=== PATIENT | female | born 1995 | race Caucasian/White ===

== ENCOUNTER 2016-12-17 19:28 | Emergency (ER) ==
[2016-12-17 19:33] VITALS: BP 88/52; TEMP 98.7; BMI 30.2
--- NOTE | 2016-12-17 19:41 | ED.PDOC ---
General ED Provider: Dr. CARL CLOUD-ER Chief Complaint: Sore Throat Stated Complaint: my throat is sore and swollen--this happens a lot Time Seen by Physician: 19:39 Mode of Arrival: Walk-In Information Source: Patient Exam Limitations: No limitations Nursing and Triage Documentation Reviewed and Agree: Yes EENT Complaint Exam - Throat Complaint/Exam Onset/Duration: 2 days Symptoms Are: Still present Timimg: Constant Initial Severity: Mild Current Severity: Moderate Aggravating: Reports: Eating Alleviating: Reports: Antipyretics Associated Signs and Symptoms: Reports: Fever, Nasal congestion. Denies: Dysphagia, Drooling, Foreign body sensation, Chills, Cough, Wheezing, Hoarseness , Sinus discomfort, Difficulty breathing, Lethargy, Irritability, Decreased activity, Vomiting, Diarrhea, Decreased hearing, Ear drainage Related History: Reports: Similar Episode Uvula Midline: Yes Marta-tonsillar Fluctuence: No Scarlatinaform Rash Present: No Exanthem: Present: Pharynx Stridor Present: No Sinus Tenderness Present: No Tonsillar Hypertrophy Present: Yes Tonsillar Exudate Present: No Marta-tonsillar Swelling Present: No Adenopathy Present: Yes Splenomegaly Present: No Differential Diagnoses: Tonsillitis Review of Systems - Review Of Systems Constitutional: Reports: Fever Eyes: Reports: No symptoms Ears, Nose, Mouth, Throat: Reports: Throat pain, Throat swelling Respiratory: Reports: No symptoms Cardiac: Reports: No symptoms GI: Reports: No symptoms : Reports: No symptoms Musculoskeletal: Reports: No symptoms Skin: Reports: No symptoms Neurological: Reports: No symptoms Endocrine: Reports: No symptoms Hematologic/Lymphatic: Reports: No symptoms All Other Systems: Reviewed and Negative Past Medical History - Past Medical History Previously Healthy: Yes Endocrine: Reports: None Cardiovascular: Reports: None Respiratory: Reports: None Hematological: Reports: None Gastrointestinal: Reports: None Genitourinary: Reports: None Neuro/Psych: Reports: None Musculoskeletal: Reports: None Cancer: Reports: None Last Menstrual Period: 4-5 DAYS AGO - Surgical History General Surgical History: Reports: Unknown - Family History Family History: Reports: Unknown - Social History Smoking Status: Former smoker Hx Substance Use: No Alcohol Screening: Occasionally Lives: With family - Immunizations Tetanus Shot up to Date: Yes Physical Exam - Physical Exam Appearance: Well-appearing, No pain distress, Well-nourished Pain Distress: Mild Eyes: DM, EOMI, Conjunctiva clear ENT: Ears normal, Nose normal, Erythema Neck: Supple Respiratory: Airway patent, Breath sounds clear, Breath sounds equal, Respirations nonlabored Cardiovascular: RRR, Pulses normal, No rub, No murmur GI/: Soft Musculoskeletal: Normal strength, ROM intact, No edema, No calf tenderness Skin: Warm, Dry, Normal color Neurological: Sensation intact Psychiatric: Affect appropriate, Mood appropriate Critical Care Note - Critical Care Note Total Time (mins): 0 Course - Course Orders, Labs, Meds: Orders Category Date Time Status RAPID FLU A/B Stat LAB 12/17/16 19:30 Received STREP SCREEN Stat LAB 12/17/16 19:30 Received Vital Signs: Temp Pulse Resp BP Pulse Ox 12/17/16 19:29 98.7 F 103 H 20 88/52 L 98 Departure - Departure Time of Disposition: 19:41 Disposition: HOME SELF-CARE Discharge Problem: Tonsillitis Instructions: Tonsillitis (ED) Condition: Good Pt referred to PMD for follow-up: Yes Additional Instructions: augmentin 875mg bid x 10 days--medrol dose pack--see dr tejada as outpatient Allergies/Adverse Reactions: Allergies latex Adverse Reaction (Verified 12/17/16 19:32) Home Medications: Ambulatory Orders 1 [No Reported Medications] 05/15/14 Disposition Discussed With: Patient, Family
[2016-12-17 19:52] LABS: FLU INTERNAL QC INTERNAL QC VALID; RAPID FLU A NEGATIVE (NEGATIVE); RAPID FLU B NEGATIVE (NEGATIVE)
== END 2016-12-17 20:00 | disposition home or self-care (01) ==
LOC: ED 19:28
DX: J03.90 Acute tonsillitis, unspecified (principal)
CPT/HCPCS: 87804; 87880; 99283

== ENCOUNTER 2017-04-06 16:27 | Outpatient (CLI) ==
[2017-04-06 17:24] LABS: BASOPHILS # (AUTO) 0.1 K/uL (0-0.2); BASOPHILS % (AUTO) 0.5 % (0.0-3.0); EOSINOPHILS # (AUTO) 0.3 K/ul (0.0-0.7); EOSINOPHILS % (AUTO) 2.9 % (0.0-7.0); HEMATOCRIT 39.6 % (37.0-47.0); IMMATURE GRANULOCYTE % (AUTO) 0.5 % (0.0-5.0); LYMPHOCYTES # (AUTO) 2.8 K/uL (0.60-3.4); LYMPHOCYTES % (AUTO) 25.3 (10.0-50.0); MEAN CORPUSCULAR HEMOGLOBIN 30.6 pg (27.0-31.0); MEAN CORPUSCULAR HGB CONC 35.4 (31.8-35.4); MEAN CORPUSCULAR VOLUME 86.5 fl (81.0-99.0); MONOCYTES # (AUTO) 0.9 K/uL (0.4-2.0); MONOCYTES % (AUTO) 8.6 (0-10); NEUTROPHILS # (AUTO) 6.8 K/ul (2.0-6.9); NEUTROPHILS % (AUTO) 62.2; PLATELET COUNT 222 10^3/uL (140-440); RED BLOOD COUNT 4.58 10^6/ul (4.20-5.40); WHITE BLOOD COUNT 10.98 K/ul (4.6-10.2)
[2017-04-06 17:27] LABS: BILIRUBIN,URINE Negative (NEGATIVE); KETONES,URINE Negative (NEGATIVE); LEUKOCYTE ESTERASE ,URINE Negative (NEGATIVE); NITRITE,URINE Negative (NEGATIVE); PH,URINE 5.5 (5-9); PROTEIN,URINE Negative (NEGATIVE); URINE, BLOOD 2+ (NEGATIVE)
[2017-04-06 17:30] LABS: ADD URINE MICROSCOPIC YES
[2017-04-06 17:32] LABS: BACTERIA,URINE TRACE (NOT PRESENT)
[2017-04-06 18:06] LABS: ALBUMIN 3.9 g/dL (3.4-5.0); ALBUMIN/GLOBULIN RATIO 1.26; ANION GAP 11.7; BILIRUBIN,TOTAL 0.32 mg/dL (0.00-1.20); BUN/CREATININE RATIO 17.94; CALCIUM 9.2 mg/dL (8.2-10.2); CREATININE 0.78 mg/dL (0.60-1.30); POTASSIUM 3.7 mmol/L (3.5-5.10)
== END 2017-04-06 16:28 | disposition home or self-care (01) ==
LOC: LAB 16:27
PROVIDERS: ATTEND Nurse Practitioner Family
DX: H53.8 Other visual disturbances (principal); G44.89 Other headache syndrome; E66.9 Obesity, unspecified
CPT/HCPCS: 36415; 80053; 81001; 83036; 84439; 84443; 85025

== ENCOUNTER 2018-01-21 15:52 | Emergency (ER) | payer OTHER ==
[2018-01-21 16:01] VITALS: BP 123/73; TEMP 98.5; BMI 37.8
--- NOTE | 2018-01-21 16:05 | ED.PDOC ---
General ED Provider: Dr. CARL CLOUD-ER Chief Complaint: Sore Throat Stated Complaint: my tonsils are swollen--joseph had this two other times Time Seen by Physician: 16:04 Mode of Arrival: Walk-In Information Source: Patient Nursing and Triage Documentation Reviewed and Agree: Yes Reviewed sepsis parameters & appropriate labs ordered?: Yes System Inflammatory Response Syndrome: Not Applicable Sepsis Protocol: For patient's 13 years and over: Temp is 96.8 and below OR 101 and greater Pulse >90 BPM Resp >20/minute Acutely Altered Mental Status Are patient's symptoms suggestive of a new infection, such as: -Pneumonia -Skin, Soft Tissue -Endocarditis -UTI -Bone, Joint Infection -Implantable Device -Acute Abdominal Infection -Wound Infection -Meningitis -Blood Stream Catheter Infection -Unknown EENT Complaint Exam - Throat Complaint/Exam Onset/Duration: 2 days Symptoms Are: Still present Timimg: Constant Initial Severity: Mild Current Severity: Mild Alleviating: Reports: None Associated Signs and Symptoms: Reports: Fever, Nasal congestion. Denies: Dysphagia, Drooling, Foreign body sensation, Chills, Cough, Wheezing, Hoarseness , Sinus discomfort Related History: Reports: Similar Episode Uvula Midline: Yes Marta-tonsillar Fluctuence: No Scarlatinaform Rash Present: No Vesicles: Present: Pharynx Stridor Present: No Sinus Tenderness Present: No Tonsillar Hypertrophy Present: Yes Tonsillar Exudate Present: Yes Marta-tonsillar Swelling Present: No Adenopathy Present: No Splenomegaly Present: No Differential Diagnoses: Tonsillitis Review of Systems - Review Of Systems Constitutional: Reports: No symptoms Eyes: Reports: No symptoms Ears, Nose, Mouth, Throat: Reports: Throat pain, Throat swelling Respiratory: Reports: No symptoms Cardiac: Reports: No symptoms GI: Reports: No symptoms : Reports: No symptoms Musculoskeletal: Reports: No symptoms Skin: Reports: No symptoms Neurological: Reports: No symptoms Endocrine: Reports: No symptoms Hematologic/Lymphatic: Reports: No symptoms All Other Systems: Reviewed and Negative Past Medical History - Past Medical History Previously Healthy: Yes Endocrine: Reports: None Cardiovascular: Reports: None Respiratory: Reports: None Hematological: Reports: None Gastrointestinal: Reports: None Genitourinary: Reports: None Neuro/Psych: Reports: None Musculoskeletal: Reports: None Cancer: Reports: None Last Menstrual Period: 2 weeks - Surgical History General Surgical History: Reports: Unknown - Family History Family History: Reports: Unknown - Social History Smoking Status: Former smoker Hx Substance Use: No Alcohol Screening: Occasionally Physical Exam - Physical Exam Appearance: Well-appearing, No pain distress, Well-nourished Pain Distress: Mild Eyes: DM, EOMI, Conjunctiva clear ENT: Rhinorrhea, Exudate Neck: Supple Respiratory: Airway patent, Breath sounds clear, Breath sounds equal, Respirations nonlabored Cardiovascular: RRR, Pulses normal, No rub, No murmur GI/: Soft, Nontender, No masses, Bowel sounds normal, No Organomegaly Musculoskeletal: Normal strength, ROM intact, No edema, No calf tenderness Skin: Warm, Dry, Normal color Neurological: Sensation intact, Motor intact, Reflexes intact, Cranial nerves intact, Alert, Oriented Psychiatric: Affect appropriate, Mood appropriate Critical Care Note - Critical Care Note Total Time (mins): 0 Course - Course Vital Signs: Temp Pulse Resp BP Pulse Ox 01/21/18 15:53 98.5 F 100 H 20 123/73 98 Departure - Departure Time of Disposition: 16:05 Disposition: HOME SELF-CARE Discharge Problem: Tonsillitis, chronic Instructions: Tonsillitis (ED) Condition: Good Pt referred to PMD for follow-up: Yes IPMP verified?: No Additional Instructions: augmentin 875mg bid x 7 days--medrol dose pack--talk to your pcp about referral to ent Allergies/Adverse Reactions: Allergies latex Adverse Reaction (Verified 01/21/18 15:59) Home Medications: Ambulatory Orders 1 [No Reported Medications] 05/15/14 Disposition Discussed With: Patient
== END 2018-01-21 16:14 | disposition home or self-care (01) ==
LOC: ED 15:52
DX: J35.01 Chronic tonsillitis (principal)
CPT/HCPCS: 99282

== ENCOUNTER 2018-03-20 08:20 | Inpatient (IN) ==
--- NOTE | 2018-03-20 08:39 | ED.PDOC ---
General ED Provider: Dr. SHELLY BLOCK Chief Complaint: Sore Throat Stated Complaint: sore throat Time Seen by Physician: 08:30 Mode of Arrival: Walk-In Information Source: Patient Exam Limitations: No limitations [facility] Nursing and Triage Documentation Reviewed and Agree: Yes Reviewed sepsis parameters & appropriate labs ordered?: Yes System Inflammatory Response Syndrome: Not Applicable Sepsis Protocol: For patient's 13 years and over: Temp is 96.8 and below OR 101 and greater Pulse >90 BPM Resp >20/minute Acutely Altered Mental Status Are patient's symptoms suggestive of a new infection, such as: -Pneumonia -Skin, Soft Tissue -Endocarditis -UTI -Bone, Joint Infection -Implantable Device -Acute Abdominal Infection -Wound Infection -Meningitis -Blood Stream Catheter Infection -Unknown System Inflammatory Response Syndrome: Not Applicable EENT Complaint Exam - Throat Complaint/Exam Onset/Duration: 2 days Symptoms Are: Still present Timimg: Constant Initial Severity: Moderate Current Severity: Moderate Aggravating: Reports: Eating Alleviating: Reports: None Associated Signs and Symptoms: Reports: Dysphagia, Cough, Nasal congestion. Denies: Fever, Drooling, Foreign body sensation, Chills, Wheezing, Hoarseness, Sinus discomfort, Difficulty breathing, Lethargy, Irritability, Decreased activity, Vomiting, Diarrhea, Decreased hearing, Ear drainage Uvula Midline: Yes Marta-tonsillar Fluctuence: No Scarlatinaform Rash Present: No Stridor Present: No Sinus Tenderness Present: No Tonsillar Hypertrophy Present: Yes (bilateral) Tonsillar Exudate Present: Yes Marta-tonsillar Swelling Present: No Adenopathy Present: No Splenomegaly Present: No Differential Diagnoses: Mononucleosis, Pharyngitis, URI Review of Systems - Review Of Systems Constitutional: Reports: No symptoms Eyes: Reports: No symptoms Ears, Nose, Mouth, Throat: Reports: Throat pain Respiratory: Reports: No symptoms Cardiac: Reports: No symptoms GI: Reports: No symptoms : Reports: No symptoms Musculoskeletal: Reports: No symptoms Skin: Reports: No symptoms Neurological: Reports: No symptoms Endocrine: Reports: No symptoms Hematologic/Lymphatic: Reports: No symptoms All Other Systems: Reviewed and Negative Past Medical History - Past Medical History Previously Healthy: Yes Endocrine: Reports: None Cardiovascular: Reports: None Respiratory: Reports: None Hematological: Reports: None Gastrointestinal: Reports: None Genitourinary: Reports: None Neuro/Psych: Reports: None Musculoskeletal: Reports: None Cancer: Reports: None Last Menstrual Period: 2 days - Surgical History General Surgical History: Reports: Unknown - Family History Family History: Reports: Unknown - Social History Smoking Status: Never smoker Hx Substance Use: No Alcohol Screening: Occasionally Physical Exam - Physical Exam Appearance: Well-appearing Eyes: DM, EOMI, Conjunctiva clear ENT: Erythema, Exudate (tonsilar hypertrophy) Respiratory: Airway patent, Breath sounds clear, Breath sounds equal, Respirations nonlabored Cardiovascular: RRR, Pulses normal, No rub, No murmur GI/: Soft, Nontender, No masses, Bowel sounds normal, No Organomegaly Musculoskeletal: Normal strength, ROM intact, No edema, No calf tenderness Skin: Warm, Dry, Normal color Neurological: Sensation intact, Motor intact, Reflexes intact, Cranial nerves intact, Alert, Oriented Psychiatric: Affect appropriate, Mood appropriate Critical Care Note - Critical Care Note Total Time (mins): 0 Course - Course Vital Signs: Temp Pulse Resp BP Pulse Ox 03/20/18 08:21 98.8 F 101 H 20 136/75 96 Departure - Departure Time of Disposition: 08:39 Disposition: ADMITTED INPATIENT Discharge Problem: Acute tonsillitis Qualifiers: Pharyngitis/tonsillitis etiology: unspecified etiology Qualified Code(s): J03.90 - Acute tonsillitis, unspecified Instructions: Tonsillitis (ED) Condition: Good Pt referred to PMD for follow-up: Yes IPMP verified?: No Additional Instructions: Please call your Family Physician as soon as possible to schedule a follow-up appointment. Allergies/Adverse Reactions: Allergies latex Adverse Reaction (Verified 03/20/18 08:28) Home Medications: Ambulatory Orders 1 [No Reported Medications] 05/15/14
[2018-03-20] MEDS ORDERED: ANCEF ONE (09:12)
[2018-03-20] MEDS: SOLU-MEDROL 40 MG IVP SCH ×2 (09:31→22:06)
[2018-03-20] MEDS: ANCEF 1 GM in SODIUM CHLORIDE 100 ML IV SCH ×3 (09:37→22:03)
[2018-03-20 10:16] VITALS: BMI 36.6
[2018-03-20] MEDS: SODIUM CHLORIDE 1,000 ML IV SCH (10:33)
--- NOTE | 2018-03-20 17:02 | CT ---
EXAM: CT of the soft tissue neck with contrast History: Tonsilitis. Comparison: None available. Technique: Multiplanar CT images through the soft tissue neck were obtained following administration of IV contrast Findings: Orbits are intact. Visualized intracranial contents demonstrate no acute findings. The p arotid glands are within normal limits. The submandibular glands are normal. The visualized paranas al sinuses and mastoid air cells are clear in general. No acute osseous abnormalities. The epiglott is is not thickened. No prevertebral soft tissue swelling. Prominent adenoids. The bilateral palat ine tonsils are enlarged. No sathya peritonsillar inflammation and no enhancing drainable fluid colle ctions identified to suggest abscess formation. There are mildly enlarged bilateral neck lymph nodes which are most likely reactive. No thyroid nodules are identified by CT. Impression: 1. [place] tonsilitis. No peritonsillar abscess. 2. Adenoid hypertrophy
[2018-03-20] MEDS ORDERED: TYLENOL PO STA (21:20)
[2018-03-21] MEDS: SODIUM CHLORIDE 1,000 ML IV SCH ×2 (02:21→19:15)
[2018-03-21] MEDS: ANCEF 1 GM in SODIUM CHLORIDE 100 ML IV SCH ×3 (04:04→20:33)
[2018-03-21] MEDS: SOLU-MEDROL 40 MG IVP SCH ×2 (12:39→20:33)
[2018-03-22 05:24] VITALS: TEMP 98.1
[2018-03-22] MEDS ORDERED: ANCEF ONE (06:11)
[2018-03-22] MEDS: ANCEF 1 GM in SODIUM CHLORIDE 100 ML IV SCH (06:18)
[2018-03-22] MEDS ORDERED: AUGMENTIN 875-125 MG TAB PO STA (08:07)
[2018-03-22] MEDS: SOLU-MEDROL 40 MG IVP SCH (08:39)
[2018-03-22 10:29] VITALS: BP 137/82
--- NOTE | 2018-04-13 14:45 | DS ---
DATE OF SERVICE: 03/22/18 FINAL DIAGNOSIS: 1. ACUTE TONSILLITIS (TONSILS ARE TOUCHING EACH OTHER) 2. SEVERE LEUKOCYTOSIS (INITIAL ONE 24,000) 3. HYPERTROPHIC ADENOIDS 4. HISTORY OF KIDNEY STONES 5. HISTORY OF 2010 DISCHARGE INSTRUCTIONS: Followup appointment with ENT for surgery as scheduled. MEDICATIONS AT DISCHARGE: (HOME) None NEW PRESCRIPTIONS: Augmentin 875 mg q.8hr for 7 days Prednisone 10 mg one twice a day for five days DIET INSTRUCTIONS: Regular diet ACTIVITY: As the patient tolerates SMOKING: Nonsmoker DISEASE SPECIFIC EDUCATION: Tonsillar swelling and abscess, difficulty swallowing discussed HOSPITAL COURSE: The patient is a 22-year-old female who came to the emergency room with swallowing problem, fever and chills. She was seen by Dr. Wells in the emergency room. Tonsils were swollen and touching each other. White count 24, [address] of cervical spine showed palatine tonsillitis, adenoid hypertrophy. The patient was given Ancef q.8hr, Solu-Medrol, IV fluids. Gradually started feelng better. Swelling and redness of the tonsils is better. White count came down from 24,000 to 18,000. Meanwhile the patient is up and about, able to eat and drink well. She did not have any problems. At that time, the patient was discharged home. TIME SPENT: MORE THAN 65 MINUTES MTDD
--- NOTE | 2018-04-17 14:41 | HP ---
DATE OF SERVICE: 03/20/18 CHIEF COMPLAINT: Sore throat, not able to swallow. HISTORY OF PRESENT ILLNESS: This is a 22-year-old female, who came to the emergency room on 03/20/18 for swollen tonsils, not able to swallow. This started one day before. She is supposed to have a tonsillectomy in April. Theraflu did not help, difficulty to swallow, not able to swallow, hurting and came to the emergency room seen by Dr. Wells in the emergency room. Tonsils were touching each other. White count 24,000 with left shift. At that time, the patient was admitted to the hospital for acute tonsillitis, elevated white count and impending oral obstruction with touching tonsil. REVIEW OF SYSTEMS: CONSTITUTIONAL: Fever, chills. HEENT: Difficulty swallowing. ENDOCRINE: No weight gain; no weight loss. CVS: No chest pain. No PND, no orthopnea. No shortness of breath. No PND, no orthopnea. RESPIRATORY: No cough, no congestion. No hemoptysis. GI: No nausea, no vomiting. No abdominal pain. No melena. : No hematuria. No polyuria. MUSCULOSKELETAL: Bodyaches. PSYCHIATRIC: Not anxious. No depression. No suicidal thoughts. No homicidal thoughts. SKIN: Intact, no open lesions. PAST MEDICAL HISTORY: History of kidney stones Recurrent tonsillitis, plan for tonsillectomy in April PAST SURGICAL HISTORY: in 2010 PERSONAL HISTORY: Alcohol - socially. 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 FAMILY HISTORY: High blood pressure. MEDICATIONS: (Home) None ALLERGIES: LATEX PHYSICAL EXAMINATION: V/S: BP 136/75, respiratory rate 20, heart rate 101, temperature 98.8, saturation 96. HEENT: Atraumatic, normocephalic. No scleral icterus. Mucosa dry. Pallor dry. Throat - touching tonsils. Left tonsil is larger than the right and has pus pockets in it. The patient has a "hot potato" voice, difficulty swallowing. NECK: Supple. No JVD, no bruit. No lymphadenopathy. No thyromegaly. HEART: S1, S2 normal. No murmur. No cyanosis or clubbing. No ascites. LUNGS: Clear to auscultation. No rales or rhonchi. ABDOMEN: Soft, nontender. Bowel sounds are active. No CVA tenderness. No rigidity or guarding. EXTREMITIES: No pedal edema. No cyanosis or clubbing MUSCULOSKELETAL: Normal joints, no swelling. NEUROLOGIC: The patient is awake and alert. SKIN: Intact; no open lesions. LYMPHATIC: No lymph nodes palpable. LABS: Sodium 136, potassium 4.0, chloride 105, bicarb 20, BUN 11, creatinine 0.72, glucose 135. White count 24.33, hemoglobin 14.3, hematocrit 41.2, platelet count 208. ASSESSMENT: 1. TONSILLITIS WITH ENLARGED TONSIL ALMOST CLOSING THE PHARYNX 2. LEUKOCYTOSIS 3. IMPENDING RESPIRATORY FAILURE PLAN: 1. Admit the patient to the regular floor. 2. CBC, CMP today and daily. 3. IV fluids. 4. Solu-Medrol 40 mg q.12 5. Cefazolin q.8hr 6. Tylenol p.r.n. TIME SPENT: MORE THAN 75 minutes MTDD
--- NOTE | 2018-04-17 14:46 | PN ---
DATE OF SERVICE: 03/21/18 SUBJECTIVE: The patient can drink some water today. She still hurts a lot when she is trying to eat solid food. No fever. REVIEW OF SYSTEMS: CONSTITUTIONAL: No fever, no chills. HEENT: Throat still hurts. ENDOCRINE: No weight gain, no weight loss. CVS: No angina symptoms. No CHF symptoms. No palpitations. No atypical chest pain for CAD. No shortness of breath. No PND, no orthopnea. RESPIRATORY: No cough, no hemoptysis. GI: No nausea, no vomiting. No abdominal pain. : No hematuria. No polyuria. MUSCULOSKELETAL: No joint swelling. PSYCHIATRIC: Not anxious. No depression. No suicidal thoughts. No homicidal thoughts. SKIN: Intact. No rash. PHYSICAL EXAMINATION: V/S: BP 132/68, respiratory rate 20, heart rate 81, temperature 98.1. HEENT: Atraumatic. Oral examination showed left tonsil is swollen and right is swollen but we can see the uvula today. NECK: Supple. No JVD, no carotid bruit. No lymphadenopathy. LUNGS: Clear to auscultation. No rales or rhonchi. HEART: S1, S2 normal. No S3. No murmur, gallop or regurgitation. ABDOMEN: Soft, nontender. Bowel sounds active. No rigidity. No rebound or guarding. No CVA tenderness. EXTREMITIES: No cyanosis, clubbing or pedal edema. MUSCULOSKELETAL: No joint swelling. NEUROLOGIC: Awake, alert, oriented times three. No focal deficit. LYMPHATIC: No lymph nodes palpable. SKIN: Intact. LABS: White count 18,000, hemoglobin 14.1, hematocrit 41.3, platelet count 226. Sodium 139, potassium 3.7, chloride 105, bicarb 23, BUN 13, creatinine 0.75, glucose 138. ASSESSMENT: 1. TONSILLITIS - ENLARGED TONSILS WITH ALMOST CLOSURE, GETTING BETTER NOW 2. ELEVATED WHITE COUNT PLAN: 1. Continue Cefazolin 2. IV fluids 3. Tylenol TIME SPENT: More than 35 minutes MTDD
== END 2018-03-22 10:33 | disposition home or self-care (01) | DRG 153 ==
LOC: ED 08:20 → MEDSURG B 08:50
PROVIDERS: ADMIT Emergency Medicine; ATTEND Emergency Medicine
DX: J03.90 Acute tonsillitis, unspecified (principal); D72.829 Elevated white blood cell count, unspecified; R13.10 Dysphagia, unspecified; J35.03 Chronic tonsillitis and adenoiditis; R05 Cough; R09.81 Nasal congestion
CPT/HCPCS: 36415; 80053; 84703; 85025; 86308; 96365; 96375; 99223; 99233; 99239; 99284

== ENCOUNTER 2018-05-10 08:59 | Emergency (ER) ==
[2018-05-10 09:02] VITALS: BP 120/72; TEMP 97.9; BMI 34.7
--- NOTE | 2018-05-10 09:30 | ED.PDOC ---
General ED Provider: Dr. SHELLY BLOCK Chief Complaint: Rash Stated Complaint: rash Time Seen by Physician: 09:00 Mode of Arrival: Walk-In Information Source: Patient Exam Limitations: No limitations Primary Care Provider: JAIDA HARRINGTON Referred to ED by: Other (SEE SUBMITTED PHOTOS) Nursing and Triage Documentation Reviewed and Agree: Yes (DENIED ANY NEW MEDS OR INSECT BITES) Does patient meet sepsis criteria?: No If yes, has appropriate treatment been initiated?: No (VENESSA AT BEDSIDE AT TIMES ) System Inflammatory Response Syndrome: Not Applicable Sepsis Protocol: For patient's 13 years and over: Temp is 96.8 and below OR 101 and greater Pulse >90 BPM Resp >20/minute Acutely Altered Mental Status Are patient's symptoms suggestive of a new infection, such as: -Pneumonia -Skin, Soft Tissue -Endocarditis -UTI -Bone, Joint Infection -Implantable Device -Acute Abdominal Infection -Wound Infection -Meningitis -Blood Stream Catheter Infection -Unknown Skin Complaint Exam - Skin Rash/Itching Complaint/Exam Onset/Duration: 1 DAY Symptoms Are: Still present Initial Severity: Mild Current Severity: Mild Potential Exposures: Reports: Unknown Aggravating: Reports: None Alleviating: Reports: None Associated Signs and Symptoms: Denies: Difficulty breathing, Fever, Chills Skin Findings: Present: Urticaria (ARMS ) Differential Diagnoses: Allergic Reaction Review of Systems - Review Of Systems Constitutional: Reports: No symptoms Eyes: Reports: No symptoms Ears, Nose, Mouth, Throat: Reports: No symptoms Respiratory: Reports: No symptoms Cardiac: Reports: No symptoms GI: Reports: No symptoms : Reports: No symptoms Musculoskeletal: Reports: No symptoms Skin: Reports: Rash (ARMS PAMS AND SOLES NOT INVOLVED ) Neurological: Reports: No symptoms Endocrine: Reports: No symptoms Hematologic/Lymphatic: Reports: No symptoms All Other Systems: Reviewed and Negative Past Medical History - Past Medical History Previously Healthy: Yes Endocrine: Reports: None Cardiovascular: Reports: None Respiratory: Reports: None Hematological: Reports: None Gastrointestinal: Reports: None Genitourinary: Reports: None Neuro/Psych: Reports: None Musculoskeletal: Reports: None Cancer: Reports: None Last Menstrual Period: 04/25/18 - Surgical History General Surgical History: Reports: Unknown - Family History Family History: Reports: Unknown - Social History Smoking Status: Never smoker Hx Substance Use: No Alcohol Screening: Occasionally - Immunizations Tetanus Shot up to Date: No Physical Exam - Physical Exam Appearance: Well-appearing, No pain distress, Well-nourished Eyes: DM, EOMI, Conjunctiva clear ENT: Ears normal, Nose normal, Oropharynx normal Respiratory: Airway patent, Breath sounds clear, Breath sounds equal, Respirations nonlabored Cardiovascular: RRR, Pulses normal, No rub, No murmur GI/: Soft, Nontender, No masses, Bowel sounds normal, No Organomegaly Musculoskeletal: Normal strength, ROM intact, No edema, No calf tenderness Skin: Warm, Dry (RASH ARMS ONLY SEE PHOTOS) Neurological: Sensation intact, Motor intact, Reflexes intact, Cranial nerves intact, Alert, Oriented Psychiatric: Affect appropriate, Mood appropriate Critical Care Note - Critical Care Note Total Time (mins): 0 Course - Course Vital Signs: Temp Pulse Resp BP Pulse Ox 05/10/18 09:00 97.9 F 67 18 120/72 98 Departure - Departure Time of Disposition: 09:30 (PLEASE SEE PHOTOS) Disposition: HOME SELF-CARE Discharge Problem: Rash in adult Instructions: Acute Rash (ED) Condition: Good Pt referred to PMD for follow-up: Yes IPMP verified?: No Additional Instructions: Please call your Family Physician as soon as possible to schedule a follow-up appointment. Allergies/Adverse Reactions: Allergies latex Adverse Reaction (Verified 05/10/18 09:02) Home Medications: Ambulatory Orders 1 [No Reported Medications] 05/10/18
== END 2018-05-10 09:34 | disposition home or self-care (01) ==
LOC: ED 08:59
DX: R21 Rash and other nonspecific skin eruption (principal)
CPT/HCPCS: 99282